=== PATIENT | female | born 1995 | race American Indian/Alaskan Native ===

== ENCOUNTER 2022-04-07 18:07 | Emergency (ER) | payer OTHER ==
[2022-04-07 19:36] VITALS: BP 110/70
== END 2022-04-08 14:02 | disposition left against medical advice (07) ==
LOC: ED 18:07
DX: O20.8 Other hemorrhage in early pregnancy (principal); Z53.21 Procedure and treatment not carried out due to patient leaving prior to being seen by health care provider; Z3A.01 Less than 8 weeks gestation of pregnancy